=== PATIENT | female | born 1995 | race Caucasian/White ===

== ENCOUNTER 2016-09-10 17:23 | Emergency (ER) | payer SELFPAY ==
[~2016-09-10] VITALS: Ht 172.7 cm; Wt 58.0 kg
[2016-09-10] MEDS ORDERED: ULTRAM50 M1 PO (17:53)
[2016-09-10 17:57] VITALS: BP 156/88
== END 2016-09-10 18:26 | disposition home or self-care (01) | DRG 563 ==
LOC: ED 17:23
DX: S93.402A Sprain of unspecified ligament of left ankle, initial encounter (principal); W01.0XXA Fall on same level from slipping, tripping and stumbling without subsequent striking against object, initial encounter; Y92.009 Unspecified place in unspecified non-institutional (private) residence as the place of occurrence of the external cause

== ENCOUNTER 2017-01-02 21:00 | Emergency (ER) | payer SELFPAY ==
[~2017-01-02] VITALS: Ht 152.4 cm; Wt 71.6 kg
[~2017-01-02 21:00] MED LIST: ULTRAM50 M1 PO
[2017-01-02 22:24] LABS: HEMATOCRIT 38.8 % (37.0-47.0); HEMOGLOBIN 12.5 g/dl (12.0-16.0); IMMATURE GRANULOCYTES 0.1 % (0.0-1.0); MEAN CELL VOLUME 86.2 fL CALC (80.0-100.0); MEAN CORPUSCULAR HGB 27.8 pG CALC (26.0-32.0); MEAN CORPUSCULAR HGB CONC 32.2 g/L CALC (32.0-36.0); NEUT# 5.11 thou/uL (2.00-7.15); RED BLOOD COUNT 4.5 mill/uL (4.20-5.60); RED CELL DISTRI WIDTH 13.3 % (11.5-15.5)
[2017-01-02 22:38] LABS: URINE BILIRUBIN - DIPSTICK NEGATIVE (NEGATIVE); URINE BLOOD DIPSTICK TRACE-LYSED (NEGATIVE); URINE CLARITY CLEAR; URINE COLOR YELLOW; URINE GLUCOSE - DIPSTICK NEGATIVE (NEGATIVE); URINE KETONE NEGATIVE (NEGATIVE); URINE NITRITE - DIPSTICK NEGATIVE (Negative); URINE PROTEIN - DIPSTICK NEGATIVE (NEG-TRACE); URINE UROBILINOGEN - DIPSTICK 0.2 E.U./dL (0.2)
[2017-01-02 22:39] LABS: COCAINE NEGATIVE (NEGATIVE); METHADONE NEGATIVE (NEGATIVE); TETRAHYDROCANNABIONOL NEGATIVE (NEGATIVE); TRICYLIC ANTIDEPRESSANTS NEGATIVE (NEGATIVE); URINE BACTERIA RARE hpf; URINE LEUK ESTERASE SMALL (NEGATIVE); URINE SQUAMOUS EPITHELIAL CELL FEW EPI/hpf (0-FEW)
[2017-01-02 22:40] LABS: BARBITURATES NEGATIVE (NEGATIVE); OXCYCODONE NEGATIVE (NEGATIVE)
[2017-01-02 22:44] LABS: ALBUMIN 4.1 g/dL (3.2-5.0); ALKALINE PHOSPHATASE 85 u/l (38-126); ANION GAP 15 (6-22 (CALC)); BILIRUBIN, TOTAL 0.6 mg/dL (0.0-1.4); BUN 17 mg/dL (7-17); BUN/CREATININE RATIO 30 (12-20 (CALC)); CALCIUM 9.4 mg/dL (8.4-10.2); CARBON DIOXIDE 25 mmol/l (22-30); CHLORIDE 105 mmol/l (95-108); CREATININE 0.6 mg/dL (0.5-1.0); GFR > 60 ML/MIN (>=60 (CALC)); GFR FOR AFR.AMER. > 60 ML/MIN (>=60 (CALC)); GLUCOSE 89 mg/dL (65-105); POTASSIUM 4.1 mmol/l (3.5-5.1); SGOT/AST 14 u/l (14-36); SGPT/ALT 28 u/l (9-52); SODIUM 140 mmol/l (137-146); TOTAL PROTEIN 7.2 g/dL (6.3-8.2)
[2017-01-03 01:16] VITALS: BP 116/67
== END 2017-01-03 01:16 | disposition home or self-care (01) | DRG 103 ==
LOC: ED 21:00
PROVIDERS: Emergency Medicine
DX: R51 Headache (principal)

== ENCOUNTER 2017-04-02 03:17 | Emergency (ER) | payer BC ==
[~2017-04-02] VITALS: Ht 162.6 cm; Wt 72.7 kg
[2017-04-02 04:09] LABS: HEMATOCRIT 40.9 % (37.0-47.0); IMMATURE GRANULOCYTES 0.4 % (0.0-1.0); MEAN CELL VOLUME 86.3 fL CALC (80.0-100.0); MEAN CORPUSCULAR HGB 27.4 pG CALC (26.0-32.0); MEAN CORPUSCULAR HGB CONC 31.8 g/L CALC (32.0-36.0); NEUT# 15.45 thou/uL (2.00-7.15); RED BLOOD COUNT 4.74 mill/uL (4.20-5.60); RED CELL DISTRI WIDTH 12.7 % (11.5-15.5)
[2017-04-02 04:23] LABS: INFLUENZA A NONE DETECTED (NONE DETECT); INFLUENZA B NONE DETECTED (NONE DETECT)
[2017-04-02 04:35] LABS: ALBUMIN 4.7 g/dL (3.2-5.0); ALKALINE PHOSPHATASE 118 u/l (38-126); ANION GAP 16 (6-22 (CALC)); BILIRUBIN, TOTAL 0.5 mg/dL (0.0-1.4); BUN 12 mg/dL (7-17); BUN/CREATININE RATIO 21 (12-20 (CALC)); CALCIUM 9.9 mg/dL (8.4-10.2); CARBON DIOXIDE 26 mmol/l (22-30); CHLORIDE 105 mmol/l (95-108); CREATININE 0.6 mg/dL (0.5-1.0); GFR > 60 ML/MIN (>=60 (CALC)); GFR FOR AFR.AMER. > 60 ML/MIN (>=60 (CALC)); GLUCOSE 112 mg/dL (65-105); POTASSIUM 3.6 mmol/l (3.5-5.1); SGOT/AST 21 u/l (14-36); SGPT/ALT 26 u/l (9-52); SODIUM 143 mmol/l (137-146); TOTAL PROTEIN 7.8 g/dL (6.3-8.2)
[2017-04-02 04:46] LABS: MYOGLOBIN 18 ng/mL (0 - 62)
[2017-04-02] MEDS ORDERED: KEFLEX500 M1 PO (06:36)
[2017-04-02] MEDS ORDERED: NAPROSYN500 MG PO (06:36)
[2017-04-02] MEDS ORDERED: ROBITUSSIN AC10 ML PO (06:44)
[2017-04-02 07:06] VITALS: BP 110/71
== END 2017-04-02 07:08 | disposition home or self-care (01) | DRG 153 ==
LOC: ED 03:17
PROVIDERS: Emergency Medicine
DX: J06.9 Acute upper respiratory infection, unspecified (principal); M79.1 Myalgia; R05 Cough; R09.1 Pleurisy; R49.0 Dysphonia; R07.1 Chest pain on breathing; R06.02 Shortness of breath
CPT/HCPCS: Q9967

== ENCOUNTER 2017-05-28 10:52 | Emergency (ER) | payer BC ==
[~2017-05-28] VITALS: Ht 162.6 cm; Wt 70.4 kg
[~2017-05-28 10:52] MED LIST changes: +KEFLEX500 M1 PO; +NAPROSYN500 MG PO; +ROBITUSSIN AC10 ML PO
[2017-05-28] MEDS ORDERED: TORADOL PO (12:39)
[2017-05-28 12:51] VITALS: BP 138/63
== END 2017-05-28 13:00 | disposition home or self-care (01) | DRG 605 ==
LOC: ED 10:52
DX: S60.051A Contusion of right little finger without damage to nail, initial encounter (principal); W23.0XXA Caught, crushed, jammed, or pinched between moving objects, initial encounter; Y93.H3 Activity, building and construction; Y92.007 Garden or yard of unspecified non-institutional (private) residence as the place of occurrence of the external cause

== ENCOUNTER 2017-09-29 22:06 | Emergency (ER) | payer BC ==
[~2017-09-29] VITALS: Ht 162.6 cm; Wt 70.2 kg
[~2017-09-29 22:06] MED LIST changes: +TORADOL PO
[2017-09-29] MEDS ORDERED: TRAMADOL HCL50 MG PO (22:25)
[2017-09-29] MEDS ORDERED: VOLTAREN - GENE75 MG PO (22:25)
[2017-09-29 22:45] VITALS: BP 128/83
== END 2017-09-29 22:54 | disposition home or self-care (01) | DRG 563 ==
LOC: ED 22:06
DX: S29.012A Strain of muscle and tendon of back wall of thorax, initial encounter (principal); X50.0XXA Overexertion from strenuous movement or load, initial encounter; Y93.89 Activity, other specified

== ENCOUNTER 2018-03-04 21:21 | Emergency (ER) | payer BC ==
[~2018-03-04] VITALS: Ht 162.6 cm; Wt 70.0 kg
[~2018-03-04 21:21] MED LIST changes: +TRAMADOL HCL50 MG PO; +VOLTAREN - GENE75 MG PO
[2018-03-04 22:03] LABS: HEMATOCRIT 43.9 % (37.0-47.0); HEMOGLOBIN 14.1 g/dl (12.0-16.0); IMMATURE GRANULOCYTES 0.3 % (0.0-5.0); MEAN CELL VOLUME 85.2 fL CALC (80.0-100.0); MEAN CORPUSCULAR HGB 27.4 pG CALC (26.0-32.0); MEAN CORPUSCULAR HGB CONC 32.1 g/L CALC (32.0-36.0); NEUT# 12.13 thou/uL (2.00-7.15); RED BLOOD COUNT 5.15 mill/uL (4.20-5.60); RED CELL DISTRI WIDTH 13.1 % (11.5-15.5)
[2018-03-04 22:19] LABS: ALKALINE PHOSPHATASE 111 u/l (38-126); AMYLASE 52 u/l (30-110); ANION GAP 17 (6-22 (CALC)); BILIRUBIN, TOTAL 0.9 mg/dL (0.0-1.4); BUN 18 mg/dL (7-17); BUN/CREATININE RATIO 30 (12-20 (CALC)); CARBON DIOXIDE 23 mmol/l (22-30); CHLORIDE 104 mmol/l (95-108); CREATININE 0.6 mg/dL (0.5-1.0); GFR > 60 ML/MIN (>=60 (CALC)); GFR FOR AFR.AMER. > 60 ML/MIN (>=60 (CALC)); LIPASE 86 u/l (23-300); POTASSIUM 3.7 mmol/l (3.5-5.1); SGOT/AST 23 u/l (14-36); SODIUM 141 mmol/l (137-146); TOTAL PROTEIN 8.3 g/dL (6.3-8.2)
[2018-03-04 22:28] LABS: URINE BILIRUBIN - DIPSTICK NEGATIVE (NEGATIVE); URINE BLOOD DIPSTICK LARGE (NEGATIVE); URINE COLOR YELLOW; URINE GLUCOSE - DIPSTICK NEGATIVE (NEGATIVE); URINE KETONE TRACE mg/dL (NEGATIVE); URINE LEUK ESTERASE NEGATIVE (NEGATIVE); URINE NITRITE - DIPSTICK NEGATIVE (Negative); URINE PROTEIN - DIPSTICK 100 mg/dL (NEG-TRACE); URINE SPECIFIC GRAVITY >=1.030; URINE UROBILINOGEN - DIPSTICK 0.2 E.U./dL (0.2)
[2018-03-04 22:33] LABS: URINE RBC TNTC RBC/hpf (0-5); URINE SQUAMOUS EPITHELIAL CELL FEW EPI/hpf (0-FEW)
[2018-03-05] MEDS ORDERED: PHENERGAN25 MG/TAB PO (00:15)
[2018-03-05] MEDS ORDERED: LOMOTIL2.5 MG PO (00:15)
[2018-03-05 00:31] VITALS: BP 101/55
== END 2018-03-05 00:32 | disposition home or self-care (01) | DRG 392 ==
LOC: ED 21:21
PROVIDERS: Family Medicine
DX: K52.9 Noninfective gastroenteritis and colitis, unspecified (principal); R10.32 Left lower quadrant pain; R10.31 Right lower quadrant pain; R11.2 Nausea with vomiting, unspecified; R19.7 Diarrhea, unspecified
CPT/HCPCS: Q9967

== ENCOUNTER 2019-08-11 20:13 | Emergency (ER) | payer OTHER ==
[~2019-08-11 20:13] MED LIST changes: +LOMOTIL2.5 MG PO; +PHENERGAN25 MG/TAB PO
[2019-08-11 20:46] LABS: HEMATOCRIT 39.1 % (37.0-47.0); HEMOGLOBIN 12.4 g/dl (12.0-16.0); MEAN CORPUSCULAR HGB 26.3 pG CALC (26.0-32.0); MEAN CORPUSCULAR HGB CONC 31.7 g/dL CAL (32.0-36.0); NEUT# 6.15 thou/uL (2.00-7.15); RED BLOOD COUNT 4.71 mill/uL (4.20-5.60); RED CELL DISTRI WIDTH 13.2 % (11.5-15.5)
[2019-08-11 21:07] LABS: ALBUMIN 4.6 g/dL (3.2-5.0); ALKALINE PHOSPHATASE 107 u/l (38-126); AMYLASE 39 u/l (30-110); ANION GAP 14 (6-22 (CALC)); BUN 14 mg/dL (7-17); BUN/CREATININE RATIO 25 (12-20 (CALC)); CARBON DIOXIDE 27 mmol/l (22-30); CHLORIDE 101 mmol/l (95-108); CREATININE 0.6 mg/dL (0.5-1.0); ETHYL ALCOHOL 0 mg/dl (0-30); GFR > 60 ML/MIN (>=60 (CALC)); GFR FOR AFR.AMER. > 60 ML/MIN (>=60 (CALC)); LIPASE 95 u/l (23-300); POTASSIUM 3.6 mmol/l (3.5-5.1); SGOT/AST 37 u/l (14-36); SODIUM 138 mmol/l (137-146); TOTAL PROTEIN 7.9 g/dL (6.3-8.2)
[2019-08-11 21:08] LABS: BILIRUBIN, TOTAL 0.3 mg/dL (0.0-1.4)
[2019-08-12] MEDS ORDERED: FLEXERIL PO (00:05)
[2019-08-12] MEDS ORDERED: HYDROCO/APAP1 TA9 PO (00:05)
[2019-08-12 00:55] VITALS: BP 123/79
== END 2019-08-12 00:55 | disposition home or self-care (01) | DRG 552 ==
LOC: ED 20:13
DX: S16.1XXA Strain of muscle, fascia and tendon at neck level, initial encounter (principal); S46.912A Strain of unspecified muscle, fascia and tendon at shoulder and upper arm level, left arm, initial encounter; S63.92XA Sprain of unspecified part of left wrist and hand, initial encounter; S20.212A Contusion of left front wall of thorax, initial encounter; S20.211A Contusion of right front wall of thorax, initial encounter; S30.1XXA Contusion of abdominal wall, initial encounter; V48.5XXA Car driver injured in noncollision transport accident in traffic accident, initial encounter
CPT/HCPCS: Q9967

== ENCOUNTER 2021-04-05 10:21 | Emergency (ER) | payer OTHER ==
[~2021-04-05] VITALS: Ht 162.6 cm; Wt 72.7 kg
[~2021-04-05 10:21] MED LIST changes: +FLEXERIL PO; +HYDROCO/APAP1 TA9 PO
[2021-04-05] MEDS ORDERED: FLEXERIL5 M1 PO (12:28)
[2021-04-05] MEDS ORDERED: ZOFRAN4 MG/TAB PO (12:28)
[2021-04-05] MEDS ORDERED: TORADOL PO (12:28)
[2021-04-05 12:31] VITALS: BP 122/72
== END 2021-04-05 13:28 | disposition home or self-care (01) | DRG 179 ==
LOC: ED 10:21
DX: U07.1 COVID-19 (principal)

== ENCOUNTER 2022-01-20 12:13 | Emergency (ER) | payer OTHER ==
[2022-01-20] VITALS (10 sets, daily range): BP systolic 113–131; BP diastolic 74–88
[~2022-01-20] VITALS: Ht 162.6 cm; Wt 79.5 kg
[~2022-01-20 12:13] MED LIST changes: +FLEXERIL5 M1 PO; +ZOFRAN4 MG/TAB PO
[2022-01-20] MEDS ORDERED: NAPROXEN500 MG PO (14:46)
[2022-01-20] MEDS ORDERED: METHOCARBAMOL500 MG PO (14:46)
== END 2022-01-20 14:50 | disposition home or self-care (01) | DRG 563 ==
LOC: ED 12:13
DX: S46.912A Strain of unspecified muscle, fascia and tendon at shoulder and upper arm level, left arm, initial encounter (principal); X50.0XXA Overexertion from strenuous movement or load, initial encounter; Y93.89 Activity, other specified

== ENCOUNTER 2022-03-08 19:18 | Emergency (ER) | payer OTHER ==
[2022-03-08] VITALS (11 sets, daily range): BP systolic 104–130; BP diastolic 56–80
[~2022-03-08] VITALS: Ht 162.6 cm; Wt 81.8 kg
[~2022-03-08 19:18] MED LIST changes: +METHOCARBAMOL500 MG PO; +NAPROXEN500 MG PO
[2022-03-08 19:42] LABS: URINE BILIRUBIN - DIPSTICK NEGATIVE (NEGATIVE); URINE BLOOD DIPSTICK NEGATIVE (NEGATIVE); URINE COLOR YELLOW; URINE GLUCOSE - DIPSTICK NEGATIVE (NEGATIVE); URINE KETONE 15 mg/dL (NEGATIVE); URINE PROTEIN - DIPSTICK NEGATIVE (NEG-TRACE); URINE SPECIFIC GRAVITY >=1.030; URINE UROBILINOGEN - DIPSTICK 0.2 E.U./dL (0.2)
[2022-03-08 19:45] LABS: URINE LEUK ESTERASE SMALL (NEGATIVE); URINE NITRITE - DIPSTICK NEGATIVE (Negative)
[2022-03-08 19:50] LABS: BASO% 0.1 % (0-3); EOS% 0.2 % (0-8); HEMATOCRIT 43.4 % (37.0-47.0); HEMOGLOBIN 14.3 g/dl (12.0-16.0); LYMPH% 4.1 % (15-41); MEAN CELL VOLUME 84.3 fL CALC (80.0-100.0); MEAN CORPUSCULAR HGB 27.8 pG CALC (26.0-32.0); MEAN CORPUSCULAR HGB CONC 32.9 g/dL CAL (32.0-36.0); MONO% 4.7 % (2-13); NEUT# 7.58 thou/uL (2.00-7.15); NEUT% 90.9 % (42-76); RED BLOOD COUNT 5.15 mill/uL (4.20-5.60); RED CELL DISTRI WIDTH 13.9 % (11.5-15.5)
[2022-03-08 19:52] LABS: URINE SQUAMOUS EPITHELIAL CELL MANY EPI/hpf (0-FEW)
[2022-03-08 20:01] LABS: ALBUMIN 4.8 g/dL (3.2-5.0); ALKALINE PHOSPHATASE 96 u/l (38-126); AMYLASE 61 u/l (30-110); ANION GAP 12 (6-22 (CALC)); BUN 19 mg/dL (7-17); BUN/CREATININE RATIO 34 (12-20 (CALC)); CARBON DIOXIDE 26 mmol/l (22-30); CHLORIDE 104 mmol/l (95-108); CREATININE 0.6 mg/dL (0.5-1.0); GFR FOR AFR.AMER. > 60 ML/MIN (>=60 (CALC)); GFR OTHER RACES > 60 ML/MIN (>=60 (CALC)); LIPASE 56 u/l (23-300); POTASSIUM 3.8 mmol/l (3.5-5.1); SGOT/AST 24 u/l (14-36); SODIUM 138 mmol/l (137-146)
[2022-03-08] MEDS ORDERED: KEFLEX500 MG PO (23:26)
[2022-03-08] MEDS ORDERED: ONDANSETRON4 MG PO (23:26)
== END 2022-03-08 23:43 | disposition home or self-care (01) | DRG 690 ==
LOC: ED 19:18
PROVIDERS: Emergency Medicine
DX: N39.0 Urinary tract infection, site not specified (principal); R11.10 Vomiting, unspecified
CPT/HCPCS: Q9967

== ENCOUNTER 2023-12-07 15:37 | Emergency (ER) | payer OTHER ==
[2023-12-07] VITALS (7 sets, daily range): BP systolic 128–143; BP diastolic 73–87
[~2023-12-07] VITALS: Ht 162.6 cm; Wt 90.7 kg
[~2023-12-07 15:37] MED LIST changes: +KEFLEX500 MG PO; +ONDANSETRON4 MG PO
[2023-12-07] MEDS ORDERED: METHOCARBAMOL 500 MG/TAB PO ONE (15:55)
[2023-12-07] MEDS ORDERED: NAPROXEN 250 MG/TAB PO ONE (15:55)
[2023-12-07 16:17] LABS: URINE BILIRUBIN - DIPSTICK Negative (NEGATIVE); URINE BLOOD DIPSTICK Negative (NEGATIVE); URINE CLARITY Clear; URINE COLOR Yellow; URINE GLUCOSE - DIPSTICK Negative (NEGATIVE); URINE KETONE Negative (NEGATIVE); URINE LEUK ESTERASE Negative (Negative); URINE NITRITE - DIPSTICK Negative (Negative); URINE PH 6.5 (4.5-8.0); URINE PROTEIN - DIPSTICK Negative (NEG-TRACE); URINE UROBILINOGEN - DIPSTICK 0.2 E.U./dL (0.2)
== END 2023-12-07 18:24 | disposition home or self-care (01) | DRG 552 ==
LOC: ED 15:37
PROVIDERS: Nurse Practitioner
DX: S16.1XXA Strain of muscle, fascia and tendon at neck level, initial encounter (principal); S39.012A Strain of muscle, fascia and tendon of lower back, initial encounter; M25.532 Pain in left wrist; M79.631 Pain in right forearm; V68.5XXA Driver of heavy transport vehicle injured in noncollision transport accident in traffic accident, initial encounter

== ENCOUNTER 2024-03-23 11:54 | Emergency (ER) | payer SELFPAY ==
[~2024-03-23] VITALS: Ht 162.6 cm; Wt 86.1 kg
[2024-03-23 13:00] LABS: BASO% 0.3 % (0-3); EOS% 0.7 % (0-8); IMMATURE GRANULOCYTES 0.2 % (0.0-5.0); LYMPH% 20.1 % (15-41); MEAN CELL VOLUME 82.7 fL CALC (80.0-100.0); MEAN CORPUSCULAR HGB 25.7 pG CALC (26.0-32.0); MEAN CORPUSCULAR HGB CONC 31.1 g/dL CAL (32.0-36.0); NEUT# 7.37 thou/uL (2.00-7.15); NEUT% 72.7 % (42-76); RED BLOOD COUNT 4.51 mill/uL (4.20-5.60); RED CELL DISTRI WIDTH 14.4 % (11.5-15.5)
[2024-03-23 13:04] LABS: URINE BILIRUBIN - DIPSTICK Negative (NEGATIVE); URINE BLOOD DIPSTICK Large (NEGATIVE); URINE GLUCOSE - DIPSTICK Negative (NEGATIVE); URINE KETONE Negative (NEGATIVE); URINE LEUK ESTERASE Trace (NEGATIVE); URINE NITRITE - DIPSTICK Negative (Negative); URINE PROTEIN - DIPSTICK Negative (NEG-TRACE); URINE UROBILINOGEN - DIPSTICK 0.2 E.U./dL (0.2)
[2024-03-23 13:06] LABS: HEMATOCRIT 37.3 % (37.0-47.0); HEMOGLOBIN 11.6 g/dl (12.0-16.0)
[2024-03-23 13:20] LABS: URINE COLOR Yellow
[2024-03-23 13:25] LABS: ALBUMIN 4.5 g/dL (3.2-5.0); CREATININE 0.5 mg/dL (0.5-1.0); POTASSIUM 3.5 mmol/l (3.5-5.1); TOTAL PROTEIN 7.6 g/dL (6.3-8.2)
[2024-03-23 13:26] LABS: BILIRUBIN, TOTAL 0.4 mg/dL (0.02-1.3)
[2024-03-23 13:38] LABS: URINE RBC 25-50 RBC/hpf (0-5); URINE WBC 0-2 WBC/hpf (0-5)
[2024-03-23 16:25] VITALS: BP 140/86
== END 2024-03-23 16:15 | disposition home or self-care (01) | DRG 833 ==
LOC: ED 11:54
PROVIDERS: Nurse Practitioner
DX: O20.0 Threatened abortion (principal); Z3A.00 Weeks of gestation of pregnancy not specified